=== PATIENT | female | born 1990 | race African-American/Black ===

== ENCOUNTER 2016-09-08 11:51 | Emergency (ER) | payer SELFPAY ==
--- NOTE | 2016-09-08 12:47 | ER Document Report ---
ED Medical Screen (RME) - General Stated Complaint: CHEST PAIN Mode of Arrival: Ambulatory Information source: Patient Notes: 25 y/o F presents to ED c/o right upper abd pain intermittently over the last week. Also reports cough with associated sob and dizziness during coughing bouts. I have greeted and performed a rapid initial assessment of this patient. A comprehensive ED assessment and evaluation of the patient, analysis of test results and completion of the medical decision making process will be conducted by additional ED providers. TRAVEL OUTSIDE OF THE [place] IN LAST 30 DAYS: No - Related Data Allergies/Adverse Reactions: No Known Allergies Allergy (Verified 09/08/16 12:29) Past Medical History - Social History Chew tobacco use (# tins/day): No Frequency of alcohol use: None Drug Abuse: None Renal/ Medical History: Denies: Hx Peritoneal Dialysis Psychiatric Medical History: Reports: Hx Depression - as teenager Denies: Hx Bipolar Disorder, Hx Post Traumatic Stress Disorder, Hx Schizophrenia Past Surgical History: Reports: Hx Gynecologic Surgery - D/C - Immunizations Immunizations up to date: Yes Hx Diphtheria, Pertussis, Tetanus Vaccination: Yes Physical Exam - Vital signs Vitals: Temp Pulse Resp BP Pulse Ox 98.0 F 125 H 18 136/88 H 99 09/08/16 12:09/08/16 12:09/08/16 12:09/08/16 12:09/08/16 12:26 - General General appearance: Appears well, Alert In distress: None - Respiratory Respiratory status: No respiratory distress - Cardiovascular Pulses: Normal: Radial Normal capillary refill: Yes Course - Vital Signs Vital signs: Temp Pulse Resp BP Pulse Ox 98.0 F 125 H 18 136/88 H 99 09/08/16 12:09/08/16 12:09/08/16 12:09/08/16 12:09/08/16 12:26
[2016-09-08 13:34] LABS: ABSOLUTE EOSINOPHILS # (AUTO) 0.1 10^3/uL (0.0-0.6); ABSOLUTE LYMPHOCYTES (AUTO) 1.2 10^3/uL (0.5-4.7); ABSOLUTE MONOCYTES (AUTO) 0.3 10^3/uL (0.1-1.4); ABSOLUTE NEUT (AUTO) 4.1 10^3/uL (1.7-8.2); BASOPHILS % (AUTO) 0.4 % (0-2); EOSINOPHILS % (AUTO) 1.3 % (0-6); HEMATOCRIT 39.1 % (36.0-47.0); HEMOGLOBIN 12.9 g/dL (12.0-15.5); HGB HCT DIFFERENCE -0.4; LYMPHOCYTES % (AUTO) 20.3 % (13-45); MEAN CORPUSCULAR HGB CONC 32.9 g/dL (32.0-36.0); MEAN CORPUSCULAR VOLUME 82 fl (80-97); MONOCYTES % (AUTO) 5.9 % (3-13); RED BLOOD COUNT 4.78 10^6/uL (3.72-5.28); RED CELL DISTRIBUTION WIDTH 14.5 % (11.5-14.0); SEGMENTED NEUTROPHILS % (AUTO) 72.1 % (42-78); WHITE BLOOD COUNT 5.7 10^3/uL (4.0-10.5)
[2016-09-08 14:01] LABS: ALANINE AMINOTRANSFERASE 17 U/L (9-52); ALBUMIN 3.5 g/dL (3.5-5.0); ALKALINE PHOSPHATASE 82 U/L (38-126); ANION GAP 12 (5-19); ASPARTATE AMINO TRANSFERASE 17 U/L (14-36); BILIRUBIN,TOTAL 0.2 mg/dL (0.2-1.3); BLOOD UREA NITROGEN 9 mg/dL (7-20); CALCIUM 8.6 mg/dL (8.4-10.2); CARBON DIOXIDE 21 mmol/L (22-30); CHLORIDE 107 mmol/L (98-107); CREATININE RESULT 0.88 mg/dL (0.52-1.25); GLUCOSE 160 mg/dL (75-110); LIPASE 132.5 U/L (23-300); POTASSIUM 3.8 mmol/L (3.6-5.0); SODIUM 139.6 mmol/L (137-145); TOTAL PROTEIN 6.7 g/dL (6.3-8.2)
[2016-09-08] MEDS ORDERED: PREDNISONE 20 MG TABLET PO ONE (14:42)
[2016-09-08] MEDS ORDERED: IPRATROPIUM/ALBUTEROL 0.5-2.5 MG/3 ML AMPUL NEB ONE (14:42)
--- NOTE | 2016-09-08 14:42 | ER Document Report ---
ED Respiratory Problem - General Mode of Arrival: Ambulatory Information source: Patient TRAVEL OUTSIDE OF THE [place] IN LAST 30 DAYS: No - HPI Patient complains to provider of: Cough Associated symptoms: Other - See above <SUSAN BREWER - Last Filed: 09/08/16 15:21> <ALEAH RODRIGUES - Last Filed: 09/08/16 18:00> - General Chief Complaint: Cough Stated Complaint: CHEST PAIN Notes: Patient is a 25 year old female who presents to the emergency department complaining of a cough onset 5 days ago. Patient reports that she first had a fever which has since gone away and states that her cough has been worsening. Patient also complains of difficulty breathing starting 4 days ago, nasal congestion, and sore throat. Patient has not taken any medications at home. ( SUSAN BREWER) - Related Data Allergies/Adverse Reactions: No Known Allergies Allergy (Verified 09/08/16 12:29) Past Medical History - General Information source: Patient - Social History Smoking Status: Current Every Day Smoker Chew tobacco use (# tins/day): No Frequency of alcohol use: None Drug Abuse: None Family History: Reviewed & Not Pertinent Patient has suicidal ideation: No Patient has homicidal ideation: No Psychiatric Medical History: Reports: Hx Depression - as teenager Past Surgical History: Reports: Hx Section, Hx Gynecologic Surgery - D/ C - Immunizations Immunizations up to date: Yes Hx Diphtheria, Pertussis, Tetanus Vaccination: Yes <SUSAN BREWER - Last Filed: 09/08/16 15:21> Review of Systems - Review of Systems Constitutional: See HPI, Fever EENT: See HPI, Nose congestion, Throat pain Cardiovascular: No symptoms reported Respiratory: See HPI, Cough, Other - Difficulty breathing Gastrointestinal: No symptoms reported Genitourinary: No symptoms reported Female Genitourinary: No symptoms reported Musculoskeletal: No symptoms reported Skin: No symptoms reported Hematologic/Lymphatic: No symptoms reported Neurological/Psychological: No symptoms reported -: Yes All other systems reviewed and negative <SUSAN BREWER - Last Filed: 09/08/16 15:21> Physical Exam - Vital signs Interpretation: Normal - General General appearance: Appears well, Alert - HEENT Head: Normocephalic, Atraumatic - Respiratory Respiratory status: No respiratory distress Chest status: Tender - Anterior chest wall tender to palpation Breath sounds: Wheezing - with forced expiration Chest palpation: Normal - Cardiovascular Rhythm: Regular Heart sounds: Normal auscultation Murmur: No - Back Back: Normal, Nontender - Extremities General upper extremity: Normal inspection General lower extremity: Normal inspection - Neurological Neuro grossly intact: Yes Cognition: Normal Orientation: AAOx4 [place] Coma Scale Eye Opening: Spontaneous [place] Coma Scale Verbal: Oriented [place] Coma Scale Motor: Obeys Commands [place] Coma Scale Total: 15 Speech: Normal - Psychological Associated symptoms: Normal affect, Normal mood - Skin Skin Temperature: Warm Skin Moisture: Dry Skin Color: Normal <SUSAN BREWER - Last Filed: 09/08/16 15:21> Course - Laboratory Result Diagrams: 09/08/16 13:09 09/08/16 13:09 <SUSAN BREWER - Last Filed: 09/08/16 15:21> - Laboratory Result Diagrams: 09/08/16 13:09 09/08/16 13:09 <ALEAH RODRIGUES - Last Filed: 09/08/16 18:00> - Re-evaluation Re-evalutation: 09/08/16 Patient improved after nebulizer and prednisone. Will be discharged home with albuterol and prednisone. Stable for discharge. Return if any worsening or concerning symptoms. Understands agrees with plan. (ALEAH RODRIGUES) - Vital Signs Vital signs: Temp Pulse Resp BP Pulse Ox 99.4 F 93 16 135/88 H 100 09/08/16 16:53 09/08/16 16:53 09/08/16 16:53 09/08/16 16:53 09/08/16 16:53 (SUSAN BREWER) (ALEAH RODRIGUES) - Laboratory Laboratory results interpreted by mn: 09/08/16 09/08/16 09/08/16 13:09 13:09 15:40 RDW 14.5 H Carbon Dioxide 21 L Glucose 160 H Urine Glucose (UA) 50 H (SUSAN BREWER) (ALEAH RODRIGUES) Discharge <SUSAN BREWER - Last Filed: 09/08/16 15:21> <ALEAH RODRIGUES - Last Filed: 09/08/16 18:00> - Discharge Clinical Impression: Bronchitis with bronchospasm Condition: Stable Disposition: HOME, SELF-CARE Instructions: Bronchospasm ([facility]), Bronchitis ([facility]), Bronchodilators ([facility]) Prescriptions: Acetaminophen with Codeine [Tylenol with Codeine #3 Tablet] 1 tab PO BIDP PRN # 14 tab PRN Reason: Prednisone 40 mg PO DAILY #6 tablet Forms: Return to Work Referrals: RINKU BEST MD [Primary Care Provider] - Follow up as needed Scribe Attestation: 09/08/16 18:00 I personally performed the services described in the documentation, reviewed and edited the documentation which was dictated to the scribe in my presence, and it accurately records my words and actions. (ALEAH RODRIGUES) Scribe Documentation - Scribe Written by Mckinley:: mckinley Davila, 09/08/16, 0316 acting as scribe for :: Deanne <SUSAN BREWER - Last Filed: 09/08/16 15:21>
[2016-09-08 15:55] LABS: APPEARANCE,URINE SLIGHTLY-CLOUDY; BILIRUBIN,URINE NEGATIVE (NEGATIVE); GLUCOSE, URINE 50 mg/dL (NEGATIVE); KETONES,URINE NEGATIVE (NEGATIVE); LEUKOCYTE ESTERASE,URINE NEGATIVE (NEGATIVE); NITRITE,URINE NEGATIVE (NEGATIVE); PROTEIN,URINE NEGATIVE (NEGATIVE); URINE SPECIFIC GRAVITY 1.016; UROBILINOGEN,URINE NEGATIVE mg/dL (<2.0)
[2016-09-08] MEDS ORDERED: ALBUTEROL SULFATE HFA (90 MCG/PUFF) 8 GM MDI (1 MDI/ER DISP) IH ONE (16:38)
[2016-09-08 16:59] VITALS: BP 135/88
--- NOTE | 2016-09-08 18:03 | EKG REPORT ---
SEVERITY:- NORMAL ECG - SINUS RHYTHM : Confirmed by: Flower Shaikh 08-Sep-2016 18:01:33
== END 2016-09-08 16:55 | disposition home or self-care (01) ==
LOC: ER 11:51
DX: J40 Bronchitis, not specified as acute or chronic (principal); J98.01 Acute bronchospasm; R05 Cough; R09.81 Nasal congestion; J02.9 Acute pharyngitis, unspecified; R06.2 Wheezing; F17.200 Nicotine dependence, unspecified, uncomplicated
CPT/HCPCS: 93005; 94640; 99284; 36415; 83690; 85025; 81025; 80053; 81001; 71020; 93010; J7512; J3490; J7620

== ENCOUNTER 2017-12-18 14:22 | Emergency (ER) | payer MEDICAID ==
[2017-12-18 14:27] VITALS: BP 117/75
[2017-12-18] MEDS ORDERED: DEXAMETHASONE SOD PHOS INJ 10 MG/1 ML VIAL IM ONE (15:07)
--- NOTE | 2017-12-18 15:11 | ER Document Report ---
HPI - HPI Pain Level: 3 Notes: Patient is a 27-year-old female who presents to the ED complaining of nasal congestion/discharge, dry nonproductive cough, occ body ache 3-4 days. Patient states that she is still eating and drinking without difficulties, but does have a decreased p.o. intake. She is still urinating normally having normal bowel movements. Patient has been using some [id number] meds for symptoms. She denies any significant past medical history including cardiopulmonary history and immunocompromised conditions. Patient denies any IV drug use. Denies any headache, neck pain, sore throat, chest pain, palpitations, syncope, shortness of breath, wheeze, dyspnea, abdominal pain, nausea/vomiting/diarrhea, urinary retention, dysuria, hematuria, or rash. - ROS Systems Reviewed and Negative: Yes All other systems reviewed and negative - REPRODUCTIVE Reproductive: REPORTS: : Past Medical History - Social History Smoking Status: Current Every Day Smoker Family History: Reviewed & Not Pertinent Renal/ Medical History: Denies: Hx Peritoneal Dialysis Psychiatric Medical History: Reports: Hx Depression - as teenager Denies: Hx Bipolar Disorder, Hx Post Traumatic Stress Disorder, Hx Schizophrenia Past Surgical History: Reports: Hx Section, Hx Gynecologic Surgery - D/ C - Immunizations Immunizations up to date: Yes Hx Diphtheria, Pertussis, Tetanus Vaccination: Yes Vertical Provider Document - CONSTITUTIONAL Agree With Documented VS: Yes Notes: PHYSICAL EXAMINATION: GENERAL: Well-appearing, well-nourished and in no acute distress. A&Ox4. Answers questions appropriately. Moves comfortably w/o notable distress HEAD: Atraumatic, normocephalic. EYES: Pupils equal round and reactive to light, extraocular movements intact, sclera anicteric, conjunctiva are normal. ENT: EAC clear b/l. TM's intact b/l without erythema, fluid, or perforation. Nares patent and with clear discharge. oropharynx no erythema without exudates. No tonsilar hypertrophy without erythema or exudate. No palatine shift. Uvula midline. No tongue protrusion. No drooling, hoarseness, or airway compromise. Moist mucous membranes. No sinus tenderness. NECK: Normal range of motion, supple without lymphadenopathy. No rigidity/ meningismus. LUNGS: Breath sounds clear to auscultation bilaterally and equal. No wheezes rales or rhonchi. No retractions HEART: Regular rate and rhythm without murmurs, rubs, gallops. ABDOMEN: Soft, nontender, nondistended abdomen. No guarding, no rebound. No masses appreciated. Normal bowel sounds present. No CVA tenderness bilaterally. No hepatosplenomegaly. NEUROLOGICAL: Normal speech, normal gait. Normal sensory, motor exams PSYCH: Normal mood, normal affect. SKIN: Warm, Dry, normal turgor, no rashes or lesions noted. - INFECTION CONTROL TRAVEL OUTSIDE OF THE [place] IN LAST 30 DAYS: No Course - Re-evaluation Re-evalutation: 12/18/17 15:09 Patient is an afebrile, well-hydrated, 27-year-old female who presents to the ED with acute URI, suspect viral. Vitals are acceptable. PE is otherwise unremarkable. Decadron given today. No labs or imaging warranted at this time based on H&P. Patient has no significant cardiopulmonary or immunocompromised medical conditions. Patient's lungs are clear to auscultation bilaterally without tachycardia, hypoxia, or tachypnea. Patient is tolerating p.o. without any difficulties. Low suspicion for any meningitis, sepsis, peritonsillar/ pharyngeal abscess, respiratory compromise, severe dehydration, or other emergent systemic condition at this time. Patient is aware this condition can change from initial presentation and she needs to monitor symptoms closely. Conservative measures otherwise for symptoms. Rx for tessalon. Recheck with your PCM in 3-5 days. Return to the ED with any worsening/concerning symptoms otherwise as reviewed in discharge. Patient is in agreement. - Vital Signs Vital signs: Temp Pulse Resp BP Pulse Ox 99.1 F 89 14 117/75 98 12/18/17 14:26 12/18/17 14:26 12/18/17 14:26 12/18/17 14:26 12/18/17 14:26 Discharge - Discharge Clinical Impression: Acute URI Condition: Stable Disposition: HOME, SELF-CARE Instructions: Upper Respiratory Illness ([facility]) Additional Instructions: Maintain adequate fluid intake Take meds as directed tylenol/ibuprofen as needed over the counter cold medication as needed for symptoms Humidified air may help Wash your hands regularly Wear a mask when coughing F/u: with your PCM in 3-5 days for a recheck Return to the ED with any fever, worsening pain, chest pain, palpitations, syncope, worsening BROWN, neck pain/stiffness, shortness of breath, wheezing, drooling, trouble swallowing/breathing, abdominal pain, n/v/d, rash, or worsening/concerning symptoms otherwise. Prescriptions: Benzonatate [Tessalon Perle 100 mg Capsule] 100 mg PO Q8HP PRN #15 cap PRN Reason: Referrals: ED [facility] [Provider Group] - Follow up as needed [facility] [Provider Group] - Follow up as needed
== END 2017-12-18 15:32 | disposition home or self-care (01) ==
LOC: ER 14:22
DX: J06.9 Acute upper respiratory infection, unspecified (principal); R09.81 Nasal congestion; R05 Cough; R52 Pain, unspecified; F17.200 Nicotine dependence, unspecified, uncomplicated
CPT/HCPCS: 99283; 96372; J1100

== ENCOUNTER 2018-04-18 11:12 | Day surgery (SDC) | payer MEDICAID ==
[~2018-04-18 11:12] MED LIST: DEXAMETHASONE SOD PHOSPHATE INJ 4 MG/1 ML VIAL ONE; GLYCOPYRROLATE 1 MG/5 ML SYRINGE ONE; METOCLOPRAMIDE HCL INJ/PF 10 MG/2 ML SDV ONE; ONDANSETRON HCL INJ/PF 4 MG/2 ML SDV ONE
[2018-04-18 12:22] LABS: APPEARANCE,URINE SLIGHTLY-CLOUDY; BILIRUBIN,URINE NEGATIVE (NEGATIVE); COLOR,URINE YELLOW; GLUCOSE, URINE NEGATIVE (NEGATIVE); KETONES,URINE NEGATIVE (NEGATIVE); LEUKOCYTE ESTERASE,URINE NEGATIVE (NEGATIVE); NITRITE,URINE NEGATIVE (NEGATIVE); PROTEIN,URINE NEGATIVE (NEGATIVE); URINE SPECIFIC GRAVITY 1.019; UROBILINOGEN,URINE NEGATIVE mg/dL (<2.0)
[2018-04-18 12:35] LABS: HEMATOCRIT 37.8 % (36.0-47.0); HEMOGLOBIN 12.7 g/dL (12.0-15.5); MEAN CORPUSCULAR HEMOGLOBIN 28.7 pg (27.0-33.4); MEAN CORPUSCULAR HGB CONC 33.6 g/dL (32.0-36.0); MEAN CORPUSCULAR VOLUME 85 fl (80-97); PLATELET COUNT 180 10^3/uL (150-450); RED BLOOD COUNT 4.43 10^6/uL (3.72-5.28); RED CELL DISTRIBUTION WIDTH 14.3 % (11.5-14.0); WHITE BLOOD COUNT 7.1 10^3/uL (4.0-10.5)
[2018-04-18] MEDS ORDERED: FENTANYL CITRATE INJ/PF 100 MCG/2 ML AMPUL ONE (13:23)
[2018-04-18] MEDS ORDERED: EPHEDRINE SULFATE INJ 50 MG/1 ML AMPULE ONE (13:23)
[2018-04-18] MEDS ORDERED: MIDAZOLAM 2 MG/2 ML INJ ONE (13:23)
[2018-04-18] MEDS ORDERED: PROPOFOL INJ 200 MG/20 ML VIAL IV ONE (13:23)
[2018-04-18] MEDS ORDERED: LIDOCAINE 2% INJ-PF (20 MG/ML) 10 ML AMPUL ONE (13:24)
[2018-04-18 13:47] LABS: CHLAM PCR NOT DETECTED (NOT DETECT); GON PCR NOT DETECTED (NOT DETECT)
[2018-04-18] MEDS ORDERED: LIDOCAINE 1%/EPINEPHRINE INJ 20 ML VIAL ONE (14:15)
[2018-04-18] MEDS ORDERED: DIPHENHYDRAMINE HCL 50 MG/ML VIAL IV PRN (14:35)
[2018-04-18] MEDS ORDERED: MORPHINE SULFATE 10 MG/ML INJ IV PRN (14:35)
[2018-04-18] MEDS ORDERED: MEPERIDINE HCL/PF INJ 25 MG/1 ML DISP.SYRIN IV PRN (14:35)
[2018-04-18] MEDS ORDERED: FENTANYL CITRATE INJ/PF 100 MCG/2 ML AMPUL IV PRN ×3 (14:35)
[2018-04-18] MEDS ORDERED: PROMETHAZINE HCL INJ 25 MG/1 ML VIAL IV PRN ×2 (14:35)
[2018-04-18] MEDS ORDERED: ONDANSETRON HCL INJ/PF 4 MG/2 ML SDV IV PRN (14:41)
[2018-04-18] MEDS ORDERED: KETOROLAC TROMETHAMINE INJ/PF 30 MG/1 ML SDV ONE (15:16)
[2018-04-18] MEDS ORDERED: ACETAMINOPHEN 1,000 MG/100 ML RTUPB IV ONE (15:16)
[2018-04-18] MEDS ORDERED: OXYCODONE-ACETAMINOPHEN 5-325 MG TABLET ONE (16:08)
[2018-04-18 16:59] VITALS: BP 119/70
--- NOTE | 2018-05-06 07:19 | Operative Report ---
Operative Report DATE OF SURGERY: 04/18/18 PREOPERATIVE DIAGNOSIS: HGSIL POSTOPERATIVE DIAGNOSIS: HGSIL OPERATION: EUA, Paracervical block, CKC, ECC SURGEON: TONY BERMUDEZ ANESTHESIA: GA TISSUE REMOVED OR ALTERED: CKC, ECC COMPLICATIONS: None ESTIMATED BLOOD LOSS: 20ml INTRAOPERATIVE FINDINGS: normal 8wks uterus with only mild uterine descent, decreased uptake circumferentially around cervical os and prominent at 6 0'clock PROCEDURE: Anesthesia: Joseph Reyes CONTACT PRINTER DRY FILM IVF: [800ml] UOP: void prior to OR Indications: [27yo with HGSIL diagnosed on pap smear in 06/2017 then patient had colposcopy 11/2017 with HSGIL and SUMAN III noted. Reviewed concerns for HGSIL which now has been present for some time and recommendations for diagnostic and excisional possibly curative procedure with cold knife conization. The risks, benefits, alternatives reviewed and she desires to proceed with planned procedure.] Procedure: The patient was taken to the Operating Room where general anesthesia was obtained without difficulty. She was prepped and draped in the normal sterile fashion in the dorsal lithotomy position. Exam under anesthesia was performed and noted above. A speculum was placed in the vagina. The anterior cervix was grasped with a single-tooth tenaculum and the uterus sounded to 8 cm after paracervical block was performed with 8 mL of 1% lidocaine with epinephrine. Sutures placed at 3 o'clock and 9 o'clock position. Lugol's solution placed on the cervix and vagina in the usual fashion with decreased uptake as noted above. The scalpel was then used to excise cone from cervix encompassing abnormalities. The conization bed was then cauterized with the bovie and an endocervical curettage specimen was obtained from above the conization site. Monsels coated foam was placed in bed of conization site. All instruments were removed from the patient's cervix and vagina. Silver nitrate was applied to the tenaculum site for hemostasis. Sponge lap needle and instrument counts are correct 2. No perioperative antibiotics were given as is not indicated for this procedure. The patient tolerated the procedure well and was taken to the recovery area awake and in stable condition.
== END 2018-04-18 17:00 | disposition home or self-care (01) ==
LOC: OROUT 11:12
PROVIDERS: ATTEND Student in an Organized Health Care Education/Training Program
DX: D06.9 Carcinoma in situ of cervix, unspecified (principal); K21.9 Gastro-esophageal reflux disease without esophagitis; F17.210 Nicotine dependence, cigarettes, uncomplicated; Z79.899 Other long term (current) drug therapy
CPT/HCPCS: 86900; 86901; 36415; 86850; 85027; 81025; 81001; 87491; 87591; 88305 ×2; 88307 ×2; 57520; J2250; J1100; J3010; J3490 ×3; J1885; J2765; J2405; J2704; J0131; 940

== ENCOUNTER 2018-05-30 05:26 | Day surgery (SDC) | payer MEDICAID ==
[2018-05-20 12:26] LABS: HEMATOCRIT 37.5 % (36.0-47.0); MEAN CORPUSCULAR HEMOGLOBIN 29.2 pg (27.0-33.4); MEAN CORPUSCULAR HGB CONC 34.7 g/dL (32.0-36.0); MEAN CORPUSCULAR VOLUME 84 fl (80-97); PLATELET COUNT 200 10^3/uL (150-450); RED BLOOD COUNT 4.45 10^6/uL (3.72-5.28); RED CELL DISTRIBUTION WIDTH 13.9 % (11.5-14.0); WHITE BLOOD COUNT 8.5 10^3/uL (4.0-10.5)
[2018-05-20 12:28] LABS: APPEARANCE,URINE SLIGHTLY-CLOUDY; BILIRUBIN,URINE NEGATIVE (NEGATIVE); COLOR,URINE YELLOW; GLUCOSE, URINE NEGATIVE (NEGATIVE); KETONES,URINE NEGATIVE (NEGATIVE); LEUKOCYTE ESTERASE,URINE TRACE (NEGATIVE); NITRITE,URINE NEGATIVE (NEGATIVE); PROTEIN,URINE NEGATIVE (NEGATIVE); URINE SPECIFIC GRAVITY 1.023
[2018-05-20 12:51] LABS: ALANINE AMINOTRANSFERASE 9 U/L (9-52); ALKALINE PHOSPHATASE 66 U/L (38-126); ANION GAP 9 (5-19); ASPARTATE AMINO TRANSFERASE 13 U/L (14-36); BILIRUBIN,DIRECT 0.1 mg/dL (0.0-0.4); BILIRUBIN,TOTAL 0.2 mg/dL (0.2-1.3); BLOOD UREA NITROGEN 9 mg/dL (7-20); CALCIUM 9.4 mg/dL (8.4-10.2); CARBON DIOXIDE 24 mmol/L (22-30); CHLORIDE 109 mmol/L (98-107); GLUCOSE 89 mg/dL (75-110); POTASSIUM 4.4 mmol/L (3.6-5.0); SODIUM 142.1 mmol/L (137-145); TOTAL PROTEIN 6.7 g/dL (6.3-8.2)
[2018-05-20 14:48] LABS: THYROXINE T4 11.3 ug/dL (5.53-11.0)
[2018-05-20 15:02] LABS: TOTAL T3 1.46 ng/mL (0.970-1.69)
[~2018-05-30 05:26] MED LIST changes: +CEFAZOLIN 2 GM/D5W RTU 2 GM/50 ML RTUPB IV PRN; -DEXAMETHASONE SOD PHOSPHATE INJ 4 MG/1 ML VIAL ONE; -GLYCOPYRROLATE 1 MG/5 ML SYRINGE ONE; +LACTATED RINGERS 1000 ML IV PRN; +LIDOCAINE 0.5% INJ-PF (5 MG/ML) 50 ML SDV SUBCUT PRN; -METOCLOPRAMIDE HCL INJ/PF 10 MG/2 ML SDV ONE; -ONDANSETRON HCL INJ/PF 4 MG/2 ML SDV ONE
[2018-05-30] MEDS ORDERED: CEFAZOLIN 2 GM/D5W RTU 2 GM/50 ML RTUPB IV ONE (05:56)
[2018-05-30] MEDS ORDERED: BUPIVACAINE HCL 0.25% /EPINEPHRINE INJ/PF 30 ML SDV ONE (06:41)
[2018-05-30] MEDS ORDERED: FENTANYL CITRATE INJ/PF 250 MCG/5 ML AMPULE ONE (07:02)
[2018-05-30] MEDS ORDERED: MIDAZOLAM 2 MG/2 ML INJ ONE (07:02)
[2018-05-30] MEDS ORDERED: MORPHINE SULFATE 10 MG/ML INJ ONE (07:03)
[2018-05-30] MEDS ORDERED: PROPOFOL INJ 200 MG/20 ML VIAL IV ONE (07:03)
[2018-05-30] MEDS ORDERED: ACETAMINOPHEN 1,000 MG/100 ML RTUPB IV ONE (07:03)
[2018-05-30] MEDS ORDERED: DEXAMETHASONE SOD PHOSPHATE INJ 4 MG/1 ML VIAL ONE (07:03)
[2018-05-30] MEDS ORDERED: ONDANSETRON HCL INJ/PF 4 MG/2 ML SDV ONE ×2 (07:03→16:06)
[2018-05-30] MEDS ORDERED: MEPERIDINE HCL/PF INJ 25 MG/1 ML DISP.SYRIN IV PRN (08:05)
[2018-05-30] MEDS ORDERED: PROMETHAZINE HCL INJ 25 MG/1 ML VIAL IV PRN ×2 (08:05)
[2018-05-30] MEDS ORDERED: MORPHINE SULFATE 10 MG/ML INJ IV PRN (08:05)
[2018-05-30] MEDS ORDERED: DIPHENHYDRAMINE HCL 50 MG/ML VIAL IV PRN (08:05)
[2018-05-30] MEDS ORDERED: OXYCODONE-ACETAMINOPHEN 5-325 MG TABLET PO PRN ×3 (08:05→10:23)
[2018-05-30] MEDS ORDERED: FENTANYL CITRATE INJ/PF 100 MCG/2 ML AMPUL IV PRN ×3 (08:05)
[2018-05-30] MEDS ORDERED: INDIGOTINDISULFONATE SODIUM INJ 40 MG/5 ML AMPULE ONE (08:53)
[2018-05-30] MEDS ORDERED: ROCURONIUM BROMIDE INJ 50 MG/5 ML VIAL IV ONE (09:12)
[2018-05-30] MEDS ORDERED: LACTATED RINGERS 1000 ML IV PRN (10:26)
[2018-05-30] MEDS: FENTANYL CITRATE INJ/PF 100 MCG/2 ML AMPUL ONE ×2 (10:40→10:42)
[2018-05-30] MEDS: KETOROLAC TROMETHAMINE INJ/PF 30 MG/1 ML SDV IV SCH ×2 (13:19→23:22)
[2018-05-30] MEDS: OXYCODONE-ACETAMINOPHEN 5-325 MG TABLET PO PRN ×2 (13:24→23:23)
[2018-05-30] MEDS ORDERED: HYDROMORPHONE HCL INJ/PF 2 MG/ML AMPULE ONE (15:49)
[2018-05-30] MEDS ORDERED: ONDANSETRON HCL INJ/PF 4 MG/2 ML SDV IV ONE (16:30)
[2018-05-30] MEDS: PHENAZOPYRIDINE HCL 200 MG TABLET PO SCH (20:51)
[2018-05-30] MEDS: PHENOL/SODIUM PHENOLATE 100 SPRAY/177 ML BOTTLE PO PRN ×2 (20:51→23:23)
[2018-05-30] MEDS ORDERED: ZOLPIDEM TARTRATE 5 MG TABLET ONE (23:06)
[2018-05-30] MEDS ORDERED: ZOLPIDEM TARTRATE 5 MG TABLET PO ONE (23:15)
[2018-05-31] MEDS: KETOROLAC TROMETHAMINE INJ/PF 30 MG/1 ML SDV IV SCH (07:23)
[2018-05-31] MEDS ORDERED: DIPHENHYDRAMINE HCL 50 MG CAPSULE PO ONE (07:42)
[2018-05-31] MEDS ORDERED: DIPHENHYDRAMINE HCL 25 MG CAPSULE PO ONE (08:00)
[2018-05-31] MEDS ORDERED: HYDROCODONE/ACETAMINOPHEN 5-325 MG TABLET PO PRN ×2 (08:23)
[2018-05-31 08:42] LABS: HEMATOCRIT 34.4 % (36.0-47.0); HEMOGLOBIN 11.9 g/dL (12.0-15.5); MEAN CORPUSCULAR HEMOGLOBIN 29.1 pg (27.0-33.4); MEAN CORPUSCULAR HGB CONC 34.6 g/dL (32.0-36.0); MEAN CORPUSCULAR VOLUME 84 fl (80-97); PLATELET COUNT 202 10^3/uL (150-450); WHITE BLOOD COUNT 11.9 10^3/uL (4.0-10.5)
[2018-05-31] MEDS: PHENAZOPYRIDINE HCL 200 MG TABLET PO SCH ×2 (09:09→16:51)
[2018-05-31] MEDS ORDERED: DIPHENHYDRAMINE HCL 50 MG/ML VIAL IV ONE (09:30)
[2018-05-31 11:48] VITALS: BP 119/74
--- NOTE | 2018-05-31 16:11 | PDOC PROGRESS REPORT ---
Subjective Progress Note for:: 05/31/18 Subjective:: eyes swollen from percocet, throat sore, + flatus, + tolerating po intake, voiding without difficulty Reason For Visit: R87.613 HIGH GRADE INTREPITH LESION CYTO SMR CRVX Physical Exam - Physical Exam Vital Signs: Temp Pulse Resp BP Pulse Ox 98 F 75 18 119/74 100 05/31/18 11:47 05/31/18 11:47 05/31/18 11:47 05/31/18 11:47 05/31/18 11:47 Intake & Output 05/30/18 05/31/18 06/01/18 06:59 06:59 06:59 Intake Total 0 4970 1000 Output Total 3025 Balance 0 1945 1000 Weight 63.5 kg General appearance: PRESENT: no acute distress, well-developed, well-nourished Respiratory exam: PRESENT: clear to auscultation arcadio, symmetrical, unlabored Cardiovascular exam: PRESENT: RRR. ABSENT: diastolic murmur, rubs, systolic murmur Pulses: PRESENT: normal dorsalis pedis pul, +2 pedal pulses bilateral GI/Abdominal exam: PRESENT: normal bowel sounds, soft. ABSENT: distended, guarding, mass, organolmegaly, rebound, tenderness Rectal exam: PRESENT: deferred Extremities exam: PRESENT: full ROM. ABSENT: calf tenderness, clubbing, pedal edema Neurological exam: PRESENT: alert, awake, oriented to person, oriented to place , oriented to time, oriented to situation, CN II-XII grossly intact. ABSENT: motor sensory deficit Psychiatric exam: PRESENT: appropriate affect, normal mood. ABSENT: homicidal ideation, suicidal ideation Skin exam: PRESENT: dry, intact, warm. ABSENT: cyanosis, rash Result Laboratory Results: 05/31/18 08:03 05/20/18 11:55 05/31/18 08:03 WBC 11.9 H RBC 4.10 Hgb 11.9 L Hct 34.4 L MCV 84 MCH 29.1 MCHC 34.6 RDW 14.0 Plt Count 202 Assessment & Plan - Diagnosis (1) Cervical intraepithelial neoplasia grade 3 Is this a current diagnosis for this admission?: Yes Plan: s/p LAVH for SUMAN III. Doing well. Meets criteria for discharge. Discharge to home with f/u next week - Time Time Spent with patient: 15-24 minutes Medications reviewed and adjusted accordingly: Yes Anticipated discharge: Home Within: within 24 hours - Plan Summary Plan Summary: Discharge to home
--- NOTE | 2018-05-31 16:11 | PDOC DISCHARGE SUMMARY ---
General - Admit/Disc Date/PCP Admission Date/Primary Care Provider: Anna Ballesteros Discharge Date: 05/31/18 - Discharge Diagnosis (1) Cervical intraepithelial neoplasia grade 3 Is this a current diagnosis for this admission?: Yes Summary: admitted for LAVH, Cysto, culdoplasty, Bilateral salpingectomy - Additional Information Discharge Diet: As Tolerated Discharge Activity: Activity As Tolerated Prescriptions: Hydrocodone/Acetaminophen [[place] 5-325 mg Tablet] 1 tab PO Q4HP PRN #28 tablet PRN Reason: Phenazopyridine HCl [Pyridium 200 mg Tablet] 200 mg PO TID 2 Days #6 tablet Ranitidine HCl [Zantac 150 mg Tablet] 1 tab PO BID 14 Days #28 tablet Home Medications: Cetirizine HCl [Zyrtec] 10 mg PO PRN PRN 04/18/18 Hydrocodone/Acetaminophen [[place] 5-325 mg Tablet] 1 tab PO Q4HP PRN #28 tablet 05/31/18 Phenazopyridine HCl [Pyridium 200 mg Tablet] 200 mg PO TID 2 Days #6 tablet 04/09 Ranitidine HCl [Zantac 150 mg Tablet] 1 tab PO BID 14 Days #28 tablet 05/31/18 History of Present Illness Patient complains of: HGSIL 06/2017 then on colposcopy 11/2017 noted SUMAN III. Pt underwent CKC and noted SUMAN III History of Present Illness: SANDEEP PRUITT is a 27 year old female Hospital Course Hospital Course: SUMAN on recent CKC and Dr. De Leon agreed with recommendations for hysterectomy and concurred that able to be performed by a lei maker with current pathology available Physical Exam - Physical Exam Vital Signs: Temp Pulse Resp BP Pulse Ox 98 F 75 18 119/74 100 05/31/18 11:47 05/31/18 11:47 05/31/18 11:47 05/31/18 11:47 05/31/18 11:47 Intake & Output 05/30/18 05/31/18 06/01/18 06:59 06:59 06:59 Intake Total 0 4970 1000 Output Total 3025 Balance 0 1945 1000 Weight 63.5 kg General appearance: PRESENT: no acute distress, well-developed, well-nourished Head exam: PRESENT: atraumatic, normocephalic Respiratory exam: PRESENT: clear to auscultation arcadio, symmetrical, unlabored Cardiovascular exam: PRESENT: RRR. ABSENT: diastolic murmur, rubs, systolic murmur GI/Abdominal exam: PRESENT: normal bowel sounds, soft. ABSENT: distended, guarding, mass, organolmegaly, rebound, tenderness Rectal exam: PRESENT: deferred Extremities exam: PRESENT: calf tenderness Neurological exam: PRESENT: alert, awake, oriented to person, oriented to place , oriented to time, oriented to situation, CN II-XII grossly intact. ABSENT: motor sensory deficit Psychiatric exam: PRESENT: appropriate affect, normal mood. ABSENT: homicidal ideation, suicidal ideation Skin exam: PRESENT: dry, intact, warm. ABSENT: cyanosis, rash Result Laboratory Results: 05/31/18 08:03 05/20/18 11:55 05/31/18 08:03 WBC 11.9 H RBC 4.10 Hgb 11.9 L Hct 34.4 L MCV 84 MCH 29.1 MCHC 34.6 RDW 14.0 Plt Count 202 Plan Discharge Plan: Discharge to home Time Spent: Less than 30 Minutes
--- NOTE | 2018-06-01 03:06 | Operative Report ---
Operative Report DATE OF SURGERY: 05/30/18 PREOPERATIVE DIAGNOSIS: SUMAN III/CIS POSTOPERATIVE DIAGNOSIS: CHELA OPERATION: LAVH, Cystoscopy, Culdoplasty, Right ovarian cyst drainage SURGEON: TONY BERMUDEZ 1ST OCCUP THER: JOLEEN BOJORQUEZ ANESTHESIA: GA TISSUE REMOVED OR ALTERED: uterus and cervix, bilateral fallopian tubes COMPLICATIONS: none ESTIMATED BLOOD LOSS: 50ml INTRAOPERATIVE FINDINGS: normal uterus, normal tubes, small simple right ovarian cyst, normal left ovary PROCEDURE: Anesthesia: Darrin Melvin MD, Andriy Quiñones MATERIAL RECLAIMER Indications:27yo with SUMAN III/CIS on recent CKC (pap HGSIL 06/2017, SUMAN III on biopsy with colposcopy 11/2017. She has completed childbearing and had desired tubal sterilization prior to this diagnosis. Reviewed pap and CKC pathology with Dr. De Leon (HOUSEKEEPER/LAUNDRY ASSISTANT Oncology) who agreed with recommendations for hysterectomy and agreed could be performed by a marble machine operator. The risks, benefits , alternatives were reviewed and she desires to proceed with planned LAVH with Cystoscopy and Culdoplasty. Estimated blood loss: 50ml Urine output: 150ml IV fluids: 2000ml Procedure: The patient was taken to the operating room where general anesthesia was obtained. The patient was then prepped and placed in the dorsal supine position with lithotomy and prepped and draped in the usual fashion. A speculum was then placed in the patient's vagina and the cervix grasped with a single-tooth tenaculum at approximately the 12 o'clock position of the anterior lip of the cervix. The medium Vesicare device was then placed and suture placed at the 12 o'clock position as well in order to maintain cut against the cervix during procedure. Single-tooth tenaculum and speculum were then removed from the patient's cervix and vagina. Attention was then turned to the abdomen where an infraumbilical skin incision was made and the Veress needle inserted into the abdominal cavity. Aspiration was negative therefore the abdomen was insufflated with carbon dioxide approximately 4 L. After adequate insufflation the Veress needle was removed and the 5 mm Optiview trocar was placed under direct visualization with the laparoscope. Survey of the patient's abdomen and pelvis were performed with findings as noted above. At this time 5mm skin incisions were made approximately 2 cm medial and 4 cm superior to the anterior iliac spine on the left and then third trocar sites placed approximately 4 cm superior also on the left. 5 mm trochars placed at all of the sites. At this time the right cornua was grasped and the right fallopian tube and utero-ovarian ligament and round ligaments were cauterized and transected in the usual fashion with the LigaSure device the remainder of the uterine vessels in anterior and posterior leaves of the broad ligament as well as cardinal and uterosacral ligaments were coagulated and transected in a serial fashion down to the level of the uterine artery. The uterine artery was then identified and cauterized and transected in the usual fashion with the LigaSure device. The anterior leaf of the broad ligament was then dissected to the midline establishing a bladder flap with a combination of blunt and sharp dissection. Sharp dissection made superiorly bilaterally to the level of the internal os of the cervix. Cautery was then used to make the anterior and posterior colpotomies over the Vesicare device in a circumferential fashion thus freeing the uterus and the cervix which were then removed vaginally and sent to pathology. Prior to the removal of the uterus and the cervix attention was turned to the bilateral fallopian tubes which were serially cauterized and transected and then removed with the uterus and cervix. The ovaries remain in place but right ovarian cyst noted and drained with transvaginal needle. Attention was then turned to the vagina where serial vaginal cuff closure was performed with 2-0 Vicryl interrupted suture. 2-0 ethibond suture placed for culdoplasty in the usual fashion and prior to securing the culdoplasty suture cystoscopy was performed with notation of bilaterally patent ureters. The cystoscope was then removed and cuff closure confirmed. Attention was then returned to the abdomen and final look performed with laparoscopy. Interceed was placed over the vaginal cuff closure laparoscopically. All operative sites were noted to be hemostatic and all instruments were removed and abdominal insufflation expelled. The trochar sites were closed with 3-0 monocryl and then overlying dermabond. Ancef 2 grams were given preoperative. Sponge, lap, needle and instruments counts were correct times two. The patient was taken to the recovery area awake and in stable condition.
== END 2018-05-31 16:55 | disposition home or self-care (01) ==
LOC: OROUT 05:26 → 2N 11:27 → OROUT 05-31 16:55
PROVIDERS: ATTEND Student in an Organized Health Care Education/Training Program
DX: D06.9 Carcinoma in situ of cervix, unspecified (principal); N72 Inflammatory disease of cervix uteri; N83.201 Unspecified ovarian cyst, right side; R53.83 Other fatigue; F17.210 Nicotine dependence, cigarettes, uncomplicated
CPT/HCPCS: 86900; 86901; 36415 ×3; 86850; 84443; 84703 ×2; 85027 ×2; 80053; 81001; 84480; 84436; 82306; 88162; 88307 ×2; 58552; 58679; C1765; J2250; J3490 ×7; J1100; J1200; J3010 ×2; J1885 ×2; J2270; J2405; J7120; J2704; J0690; J0131; 944

== ENCOUNTER 2019-08-26 17:36 | Emergency (ER) | payer SELFPAY ==
[2019-08-26] MEDS ORDERED: IBUPROFEN 800 MG TABLET PO ONE (18:51)
--- NOTE | 2019-08-26 18:52 | ER Document Report ---
HPI - HPI Time Seen by Provider: 08/26/19 18:38 Notes: Patient is a 28-year-old female who presents to the ED complaining of nasal congestion/discharge, dry nonproductive cough, fever, body ache 1 day. Child started with same symptoms this AM. Patient states that she is still eating and drinking without difficulties, but does have a decreased p.o. intake. She is still urinating normally having normal bowel movements. Patient has been using some [id number] meds for symptoms. She denies any significant past medical history including cardiopulmonary history and immunocompromised conditions. Denies any current headache, neck pain, sore throat, chest pain, palpitations, syncope, shortness of breath, wheeze, dyspnea, abdominal pain, nausea/vomiting/diarrhea, urinary retention, dysuria, hematuria, or rash. - ROS Systems Reviewed and Negative: Yes All other systems reviewed and negative - REPRODUCTIVE Reproductive: REPORTS: : Past Medical History - Social History Smoking Status: Unknown if Ever Smoked Family History: Reviewed & Not Pertinent - Past Medical History Cardiac Medical History: Denies: Hx Coronary Artery Disease, Hx Heart Attack, Hx Hypertension Pulmonary Medical History: Denies: Hx Asthma, Hx Bronchitis, Hx COPD, Hx Pneumonia Neurological Medical History: Denies: Hx Cerebrovascular Accident, Hx Seizures Renal/ Medical History: Denies: Hx Peritoneal Dialysis Musculoskeletal Medical History: Denies Hx Arthritis Psychiatric Medical History: Reports: Hx Depression - as teenager Denies: Hx Bipolar Disorder, Hx Post Traumatic Stress Disorder, Hx Schizophrenia Past Surgical History: Reports: Hx Section, Hx Gynecologic Surgery - D/C - Immunizations Immunizations up to date: Yes Hx Diphtheria, Pertussis, Tetanus Vaccination: Yes Vertical Provider Document - CONSTITUTIONAL Agree With Documented VS: Yes Notes: PHYSICAL EXAMINATION: GENERAL: Well-appearing, well-nourished and in no acute distress. A&Ox4. Answers questions appropriately. Moves comfortably w/o notable distress HEAD: Atraumatic, normocephalic. EYES: Pupils equal round and reactive to light, extraocular movements intact, sclera anicteric, conjunctiva are normal. ENT: Nares patent and with clear discharge. oropharynx no erythema without exudates. No tonsilar hypertrophy without erythema or exudate. No palatine shift. Uvula midline. No tongue protrusion. No drooling, hoarseness, or airway compromise. Moist mucous membranes. No sinus tenderness. NECK: Normal range of motion, supple without lymphadenopathy. No rigidity/meningismus. LUNGS: Breath sounds clear to auscultation bilaterally and equal. No wheezes rales or rhonchi. No retractions HEART: Regular rate and rhythm without murmurs, rubs, gallops. ABDOMEN: Soft, nontender, nondistended abdomen. No guarding, no rebound. Normal bowel sounds present. No CVA tenderness bilaterally. NEUROLOGICAL: Normal speech, normal gait. PSYCH: Normal mood, normal affect. SKIN: Warm, Dry, normal turgor, no rashes or lesions noted. - INFECTION CONTROL TRAVEL OUTSIDE OF THE [place] IN LAST 30 DAYS: No Course - Re-evaluation Re-evalutation: 08/26/19 19:55 Patient is an afebrile, well-hydrated, 28-year-old female who presents to the ED with acute URI, suspect viral/influenza. Vitals are acceptable. PE is otherwise unremarkable. No labs or imaging warranted at this time based on H&P. Patient has no significant cardiopulmonary or immunocompromised medical condi tions. Patient's lungs are clear to auscultation bilaterally without tachycardia, hypoxia, or tachypnea. Patient is tolerating p.o. without any difficulties. Thoroughly reviewed the risks, benefits, potential side effects, estimated cost without insurance with patient. After thorough review, patient requested Tamiflu at this time. Low suspicion for any meningitis, sepsis, peritonsillar/pharyngeal abscess, respiratory compromise, severe dehydration, or other emergent systemic condition at this time. Patient is aware this condition can change from initial presentation and she needs to monitor symptoms closely. Conservative measures otherwise for symptoms. Recheck with your PCM in 2-3 days. Return to the ED with any worsening/concerning symptoms otherwise as reviewed in discharge. Patient is in agreement. - Vital Signs Vital signs: Temp Pulse Resp BP Pulse Ox 102.3 F H 102 H 18 118/70 99 08/26/19 18:11 08/26/19 18:11 08/26/19 18:11 08/26/19 18:11 08/26/19 18:11 Discharge - Discharge Clinical Impression: Acute URI Condition: Stable Disposition: HOME, SELF-CARE Instructions: Upper Respiratory Illness ([facility]) Additional Instructions: Maintain adequate fluid intake tylenol/ibuprofen as needed alternating every 3 hours for fever/body ache over the counter cold medication as needed for symptoms Humidified air may help Wash your hands regularly Wear a mask when coughing F/u: with your PCM in 2-3 days for a recheck Return to the ED with any fever, altered mental status/behavior, chest pain, palpitations, syncope, headache, neck pain/stiffness, shortness of breath, chest pains, wheezing, drooling, trouble swallowing/breathing, abdominal pain, n/v/d, rash, or worsening/concerning symptoms otherwise. Prescriptions: Oseltamivir Phosphate [Tamiflu 75 mg Capsule] 75 mg PO BID #10 capsule Referrals: [facility] [Provider Group] - Follow up as needed
[2019-08-26 19:49] LABS: A TYPE INFLUENZA AG NEGATIVE (NEGATIVE); B INFLUENZA AG NEGATIVE (NEGATIVE)
[2019-08-26 20:02] VITALS: BP 123/67
== END 2019-08-26 20:35 | disposition home or self-care (01) ==
LOC: ER 17:36
DX: O99.519 Diseases of the respiratory system complicating pregnancy, unspecified trimester (principal); J06.9 Acute upper respiratory infection, unspecified; O26.899 Other specified pregnancy related conditions, unspecified trimester; R09.81 Nasal congestion; R05 Cough; R50.9 Fever, unspecified; R52 Pain, unspecified; Z3A.00 Weeks of gestation of pregnancy not specified
CPT/HCPCS: 87804; 99283

== ENCOUNTER 2020-06-02 08:46 | Emergency (ER) | payer OTHER ==
--- NOTE | 2020-06-02 09:18 | ER Document Report ---
ED Medical Screen (RME) - General Chief Complaint: Abdominal Pain Stated Complaint: ABDOMINAL PAIN Time Seen by Provider: 06/02/20 09:16 Notes: HPI: 29-year-old female presenting for evaluation of right upper quadrant pain fairly constant over the last 5 days. History of prior gallbladder issues where she had been diagnosed with gallbladder sludge no stones. Has had nausea no fever no diarrhea no vomiting. Reports continued discomfort in the right upper quadrant region. No shortness of breath or chest pain PHYSICAL EXAMINATION: Minimal tenderness in the right upper quadrant on palpation limited exam by triage process. Patient with prior history of partial hysterectomy. I have greeted and performed a rapid initial assessment of this patient. A comprehensive ED assessment and evaluation of the patient, analysis of test results and completion of medical decision making process will be conducted by an additional ED providers. TRAVEL OUTSIDE OF THE [place] IN LAST 30 DAYS: No - Related Data Allergies/Adverse Reactions: acetaminophen [From Percocet] Allergy (Intermediate, Verified 06/02/20 09:09) oxycodone [From Percocet] Allergy (Intermediate, Verified 06/02/20 09:09) Past Medical History - Social History Chew tobacco use (# tins/day): No Frequency of alcohol use: None Drug Abuse: None - Past Medical History Cardiac Medical History: Denies: Hx Coronary Artery Disease, Hx Heart Attack, Hx Hypertension Pulmonary Medical History: Denies: Hx Asthma, Hx Bronchitis, Hx COPD, Hx Pneumonia Neurological Medical History: Denies: Hx Cerebrovascular Accident, Hx Seizures Renal/ Medical History: Denies: Hx Peritoneal Dialysis Musculoskeltal Medical History: Denies Hx Arthritis Psychiatric Medical History: Reports: Hx Depression - as teenager Denies: Hx Bipolar Disorder, Hx Post Traumatic Stress Disorder, Hx Schizophrenia Past Surgical History: Reports: Hx Section, Hx Gynecologic Surgery - D/C - Immunizations Immunizations up to date: Yes Hx Diphtheria, Pertussis, Tetanus Vaccination: Yes Physical Exam - Vital signs Vitals: Temp Pulse Resp BP Pulse Ox 98.1 F 87 16 117/71 100 06/02/20 08:50 06/02/20 08:50 06/02/20 08:50 06/02/20 08:50 06/02/20 08:50 Course - Vital Signs Vital signs: Temp Pulse Resp BP Pulse Ox 98.1 F 87 16 117/71 100 06/02/20 09:09 06/02/20 08:50 06/02/20 08:50 06/02/20 08:50 06/02/20 08:50
[2020-06-02 09:47] LABS: ABSOLUTE LYMPHOCYTES (AUTO) 1.9 10^3/uL (0.5-4.7); ABSOLUTE MONOCYTES (AUTO) 0.2 10^3/uL (0.1-1.4); ABSOLUTE NEUT (AUTO) 2.9 10^3/uL (1.7-8.2); BASOPHILS % (AUTO) 0.6 % (0-2); EOSINOPHILS % (AUTO) 0.5 % (0-6); HEMATOCRIT 41.2 % (36.0-47.0); HEMOGLOBIN 13.9 g/dL (12.0-15.5); LYMPHOCYTES % (AUTO) 37.9 % (13-45); MEAN CORPUSCULAR HEMOGLOBIN 29.7 pg (27.0-33.4); MEAN CORPUSCULAR HGB CONC 33.8 g/dL (32.0-36.0); MEAN CORPUSCULAR VOLUME 88 fl (80-97); MONOCYTES % (AUTO) 4.6 % (3-13); PLATELET COUNT 200 10^3/uL (150-450); RED BLOOD COUNT 4.69 10^6/uL (3.72-5.28); RED CELL DISTRIBUTION WIDTH 14.6 % (11.5-14.0); SEGMENTED NEUTROPHILS % (AUTO) 56.4 % (42-78); TOTAL CELLS COUNTED % (AUTO) 100 %; WHITE BLOOD COUNT 5.1 10^3/uL (4.0-10.5)
[2020-06-02 10:06] LABS: ALBUMIN 4.2 g/dL (3.5-5.0); ALKALINE PHOSPHATASE 55 U/L (38-126); ANION GAP 6 (5-19); ASPARTATE AMINO TRANSFERASE 17 U/L (14-36); BILIRUBIN,DIRECT 0.1 mg/dL (0.0-0.4); BILIRUBIN,TOTAL 0.3 mg/dL (0.2-1.3); BLOOD UREA NITROGEN 12 mg/dL (7-20); CALCIUM 9.3 mg/dL (8.4-10.2); CARBON DIOXIDE 27 mmol/L (22-30); CHLORIDE 108 mmol/L (98-107); GLUCOSE 98 mg/dL (75-110); POTASSIUM 4.5 mmol/L (3.6-5.0); TOTAL PROTEIN 6.8 g/dL (6.3-8.2)
[2020-06-02 10:15] LABS: APPEARANCE,URINE SLIGHTLY-CLOUDY; BILIRUBIN,URINE NEGATIVE (NEGATIVE); COLOR,URINE YELLOW; GLUCOSE, URINE NEGATIVE (NEGATIVE); KETONES,URINE NEGATIVE (NEGATIVE); LEUKOCYTE ESTERASE,URINE NEGATIVE (NEGATIVE); NITRITE,URINE NEGATIVE (NEGATIVE); PROTEIN,URINE NEGATIVE (NEGATIVE); UROBILINOGEN,URINE NEGATIVE mg/dL (<2.0)
--- NOTE | 2020-06-02 10:27 | RADIOLOGY REPORT (SQ) ---
EXAM DESCRIPTION: U/S ABDOMEN LIMITED W/O DOP IMAGES COMPLETED DATE/TIME: 06/02/2020 10:12 am REASON FOR STUDY: ruq pain COMPARISON: 05/08/2012. TECHNIQUE: Dynamic and static grayscale images acquired of the abdomen and recorded on PACS. Additio jani selected color Doppler and spectral images recorded. LIMITATIONS: None. FINDINGS: PANCREAS: No masses. Visualized pancreatic duct normal caliber. LIVER: No masses. Echotexture normal. LIVER VASCULATURE: Normal directional flow of the main portal vein and hepatic veins. GALLBLADDER: No stones. Faint sludge in the gallbladder neck. Normal wall thickness. No pericholecy stic fluid. ULTRASOUND-DETECTED NINA'S SIGN: Negative. INTRAHEPATIC DUCTS AND COMMON DUCT: CBD and intrahepatic ducts normal caliber. No filling defects. INFERIOR VENA CAVA: Normal flow. AORTA: No aneurysm. RIGHT KIDNEY: Normal size. Normal echogenicity. No solid or suspicious masses. No hydronephrosis. No calcifications. PERITONEAL AND RIGHT PLEURAL SPACE: No ascites or effusions. OTHER: No other significant findings. IMPRESSION: GALLBLADDER SLUDGE. TECHNICAL DOCUMENTATION: JOB ID: [id number] [email or web address]- All Rights Reserved Reading location - IP/workstation name: [email or web address]
--- NOTE | 2020-06-02 10:53 | ER Document Report ---
ED GI/ - General Chief Complaint: Abdominal Pain Stated Complaint: ABDOMINAL PAIN Time Seen by Provider: 06/02/20 09:16 Notes: CHIEF COMPLAINT: Right upper quadrant pain HPI:29-year-old female presenting for evaluation of right upper quadrant pain fairly constant over the last 5 days. History of prior gallbladder issues where she had been diagnosed with gallbladder sludge no stones. Has had nausea no fever no diarrhea no vomiting. Reports continued discomfort in the right upper quadrant region. No shortness of breath or chest pain ROS: See HPI - all other systems were reviewed and are otherwise negative Constitutional: no fever Eyes: no drainage, no blurred vision ENT: no runny nose, no sore throat Cardiovascular: no chest pain Resp: no SOB, no cough GI: no vomiting, no diarrhea, + abdominal pain : no dysuria Integumentary: no rash Allergy: no hives Musculoskeletal: no extremity pain or swelling Neurological: no numbness/tingling, no weakness MEDICATIONS: I agree with the patient medications as charted by the RN. ALLERGIES: I agree with the allergies as charted by the RN. PAST MEDICAL HISTORY/PAST SURGICAL HISTORY: Reviewed and agree as charted by RN. SOCIAL HISTORY: Reviewed and agree as charted by RN. FAMILY HISTORY: No significant familial comorbid conditions directly related to patient complaint EXAM: Reviewed vital signs as charted by RN. CONSTITUTIONAL: Alert and oriented and responds appropriately to questions. Well-appearing; well-nourished HEAD: Normocephalic; atraumatic EYES: PERRL; Conjunctivae clear, sclerae non-icteric ENT: normal nose; no rhinorrhea; moist mucous membranes; pharynx without lesions noted, no uvula edema or deviation, no tonsillar hypertrophy, phonation normal NECK: Supple without meningismus; non-tender; no cervical lymphadenopathy, no masses CARD: RRR; no murmurs, no clicks, no rubs, no gallops; symmetric distal pulses RESP: Normal chest excursion without splinting or tachypnea; breath sounds clear and equal bilaterally; no wheezes, no rhonchi, no rales, pulse oximetry 100% on room air not hypoxic ABD/GI: Normal bowel sounds; non-distended; soft, minimal tenderness in the right upper quadrant on palpation, no rebound, no guarding; no palpable organomegaly or masses. BACK: The back appears normal and is non-tender to palpation, there is no CVA tenderness EXT: Normal ROM in all joints; non-tender to palpation; no cyanosis, no effusions, no edema SKIN: Normal color for age and race; warm; dry; good turgor; no acute lesions noted NEURO: Moves all extremities equally; Motor and sensory function intact PSYCH: The patient's mood and manner are appropriate. Grooming and personal hygiene are appropriate. MDM: 33-year-old female prior history of gallbladder sludge several years ago presenting for right upper quadrant pain over the last 5 days. Has not had vomiting or fever. Work-up today shows normal lab work, gallbladder sludge but no evidence of cholelithiasis or cholecystitis. Patient is very comfortable at this time. I spoke with her at length about her results will refer to surgery for outpatient management, strict return precautions were discussed TRAVEL OUTSIDE OF THE [place] IN LAST 30 DAYS: No - Related Data Allergies/Adverse Reactions: acetaminophen [From Percocet] Allergy (Intermediate, Verified 06/02/20 09:09) oxycodone [From Percocet] Allergy (Intermediate, Verified 06/02/20 09:09) Past Medical History - Social History Smoking Status: Current Every Day Smoker Chew tobacco use (# tins/day): No Frequency of alcohol use: None Drug Abuse: None Family History: Reviewed & Not Pertinent Patient has homicidal ideation: No - Past Medical History Cardiac Medical History: Denies: Hx Coronary Artery Disease, Hx Heart Attack, Hx Hypertension Pulmonary Medical History: Denies: Hx Asthma, Hx Bronchitis, Hx COPD, Hx Pneumonia Neurological Medical History: Denies: Hx Cerebrovascular Accident, Hx Seizures Renal/ Medical History: Denies: Hx Peritoneal Dialysis Musculoskeletal Medical History: Denies Hx Arthritis Psychiatric Medical History: Reports: Hx Depression - as teenager Denies: Hx Bipolar Disorder, Hx Post Traumatic Stress Disorder, Hx Schizophrenia Past Surgical History: Reports: Hx Section, Hx Gynecologic Surgery - D/C - Immunizations Immunizations up to date: Yes Hx Diphtheria, Pertussis, Tetanus Vaccination: Yes Physical Exam - Vital signs Vitals: Temp Pulse Resp BP Pulse Ox 98.1 F 87 16 117/71 100 06/02/20 08:50 06/02/20 08:50 06/02/20 08:50 06/02/20 08:50 06/02/20 08:50 Course - Vital Signs Vital signs: Temp Pulse Resp BP Pulse Ox 98.1 F 87 16 117/71 100 06/02/20 09:09 06/02/20 08:50 06/02/20 08:50 06/02/20 08:50 06/02/20 08:50 - Laboratory Result Diagrams: 06/02/20 09:30 06/02/20 09:30 Laboratory results interpreted by me: 06/02/20 06/02/20 09:30 09:30 RDW 14.6 H Chloride 108 H Discharge - Discharge Clinical Impression: Right upper quadrant pain, Gallbladder sludge Condition: Stable Disposition: HOME, SELF-CARE Additional Instructions: Saline diet. Your work-up today showed normal labs and some sludge in the gallbladder but no definite stones. Follow-up closely with the surgery clinic for outpatient management and evaluation if you develop fever vomiting or worsening abdominal pain return for reevaluation as discussed Referrals: BIPIN PETERS MD [ACTIVE STAFF] - Follow up as needed
[2020-06-02 11:18] VITALS: BP 116/65
--- OUTSIDE RECORDS SUMMARY | 2020-06-03 18:31 | XMS REPORT ---
:1990 Author [facility] Address [address] [address] Care Team Providers Name Role Phone Unavailable Unavailable Unavailable Allergies, Adverse Reactions, Alerts This patient has no known allergies or adverse reactions. Medications This patient has no known medications. Problems This patient has no known problems. Procedures This patient has no known procedures. Results This patient has no known results. Social History This patient has no known social history. Vital Signs This patient has no known vital signs.
== END 2020-06-02 11:23 | disposition home or self-care (01) ==
LOC: ER 08:46
DX: K82.8 Other specified diseases of gallbladder (principal); R10.11 Right upper quadrant pain; R10.811 Right upper quadrant abdominal tenderness; R11.0 Nausea; F17.200 Nicotine dependence, unspecified, uncomplicated; Z88.8 Allergy status to other drugs, medicaments and biological substances; Z88.6 Allergy status to analgesic agent; Z88.5 Allergy status to narcotic agent
CPT/HCPCS: 36415; 76705; 80053; 81001; 83690; 85025; 99284

== ENCOUNTER → 2020-06-16 | Outpatient (CLI) | payer OTHER ==
--- NOTE | 2020-06-16 12:20 | RADIOLOGY REPORT (SQ) ---
EXAM DESCRIPTION: NM HIDA SCAN WITH CCK IMAGES COMPLETED DATE/TIME: 06/16/2020 10:30 am REASON FOR STUDY: R10.11 RIGHT UPPER QUADRANT PAIN R10.11 RIGHT UPPER QUADRANT PAIN COMPARISON: 06/02/2020 ultrasound RADIONUCLIDE AND DOSE: DOSAGE RADIONUCLIDE: 5.32 millicuries Tc99m Mebrofenin. DOSAGE CCK: 1.0 micrograms. DOSAGE MORPHINE: Not required. The route of agent administration: Intravenous TECHNIQUE: Serial imaging right upper quadrant up to 60 minutes following injection of radionuclide. CCK injected after gallbladder visualized. LIMITATIONS: None. FINDINGS: LIVER: Normal visualization without areas of photopenia. INTRAHEPATIC BILE DUCTS: Normal size and no delay in visualization. COMMON BILE DUCT: Normal without dilatation. GALLBLADDER: Normal visualization. Calculated ejection fraction of 61%. Normal range is greater th an 35%. PHYSICAL RESPONSE: Patients presenting complaint was not reproduced. OTHER: No other significant finding. IMPRESSION: NORMAL STUDY WITHOUT CYSTIC OR COMMON DUCT OBSTRUCTION. NORMAL GALLBLADDER EJECTION FRACTION (61%). NO EVIDENCE FOR BILIARY DYSKINESIS. TECHNICAL DOCUMENTATION: JOB ID: [id number] [employer]- All Rights Reserved Reading location - IP/workstation name: [email or web address]
== END ==
LOC: RAD 07:22
PROVIDERS: ATTEND Internal Medicine Geriatric Medicine
DX: R10.11 Right upper quadrant pain (principal)
CPT/HCPCS: 78227; J2805; A9537; Q9969

== ENCOUNTER 2020-08-07 14:43 | Emergency (ER) | payer OTHER ==
[2020-08-07 14:49] VITALS: BP 107/79
--- NOTE | 2020-08-07 15:13 | ER Document Report ---
ED GI/ - General Chief Complaint: Abdominal Problem Stated Complaint: BLEEDING FROM [place] Time Seen by Provider: 08/07/20 15:01 Primary Care Provider: JAMMIE LOPEZ MD [Primary Care Provider] - Follow up as needed Mode of Arrival: Ambulatory Information source: Patient TRAVEL OUTSIDE OF THE [place] IN LAST 30 DAYS: No - HPI Patient complains to provider of: Other - Bleeding from umbilicus Notes: 08/07/20 15:14 Patient here with complaints of bleeding from her umbilicus for the last 6 weeks. She states that this has been intermittent for the last 6 weeks. Is not a lot of blood. Today she noticed some foul odor coming from her umbilicus as well. She denies any injury to the area. No piercings. She denies scratching the area. She does complain of some occasional vomiting. She denies any abdominal pain otherwise. She reports that it takes her a long time to have a bowel movement but her stool is soft. She actually has an appointment with GI coming up early next week regarding all of this. She denies any fevers. No chest pain or shortness of breath. No rash. Nothing seems to make symptoms better or worse. No dysuria or hematuria. No other complaints at this time. - Related Data Allergies/Adverse Reactions: acetaminophen [From Percocet] Allergy (Intermediate, Verified 08/07/20 14:57) oxycodone [From Percocet] Allergy (Intermediate, Verified 08/07/20 14:57) Past Medical History - Social History Smoking Status: Current Every Day Smoker Frequency of alcohol use: None Drug Abuse: Marijuana Family History: Reviewed & Not Pertinent - Past Medical History Cardiac Medical History: Denies: Hx Coronary Artery Disease, Hx Heart Attack, Hx Hypertension Pulmonary Medical History: Denies: Hx Asthma, Hx Bronchitis, Hx COPD, Hx Pneumonia Neurological Medical History: Denies: Hx Cerebrovascular Accident, Hx Seizures Renal/ Medical History: Denies: Hx Peritoneal Dialysis Musculoskeletal Medical History: Denies Hx Arthritis Psychiatric Medical History: Reports: Hx Depression Denies: Hx Bipolar Disorder, Hx Post Traumatic Stress Disorder, Hx Schizophrenia Past Surgical History: Reports: Hx Section, Hx Gynecologic Surgery - Immunizations Immunizations up to date: Yes Hx Diphtheria, Pertussis, Tetanus Vaccination: Yes Review of Systems - Review of Systems -: Yes All other systems reviewed and negative Physical Exam - Vital signs Vitals: Temp Pulse Resp BP Pulse Ox 99.1 F 102 H 18 107/79 98 08/07/20 14:47 08/07/20 14:47 08/07/20 14:47 08/07/20 14:47 08/07/20 14:47 - Notes Notes: GENERAL: alert, cooperative, nontoxic, no distress. HEAD: normocephalic, atraumatic EYES: conjunctiva pink without discharge, no external redness or swelling. EARS: no external swelling, no external redness NOSE: atraumatic, no external swelling MOUTH/THROAT: mucous membranes moist and pink, posterior pharynx without erythe ma, swelling, exudate. No trismus or drooling. NECK: soft, supple, full range of motion, no meningismus. CHEST: no distress, lungs clear and equal throughout. No wheezing, rales, rhonchi. CARDIAC: regular rate and rhythm, no murmur ABDOMEN: Soft, nontender to palpation. Normal bowel sounds. Small amount of dried blood and old blood noted within the umbilicus. Mild tenderness to palpation. No purulent drainage. No significant surrounding erythema. BACK: full range of motion EXTREMITIES: full range of motion of all extremities. No redness, no swelling. NEURO: alert and oriented x 3, no focal deficits, full range of motion of all extremities. PYSCH: appropriate mood, affect. Patient is cooperative. SKIN: pink, warm, dry, no rash. Course - Re-evaluation Re-evalutation: 08/07/20 15:16 Patient is nontoxic-appearing stable vitals. Here with complaints of bleeding from her umbilicus. She states that this has been going on for the last 6 weeks intermittently. She has had a few episodes of nausea vomiting. She denies any severe abdominal pain at this time. On exam she is noted to have some dried blood mild tenderness to her umbilicus with no significant surrounding cellulitis. Do not see any purulent drainage at this time. She has no abdominal tenderness otherwise. She is noted to have minimal tachycardia with a heart rate of 102. Overall the patient looks extremely well. I did offer doing blood work and a CAT scan, the patient declined at this time. Do believe that this is reasonable at this point the most likely cause of this patient's bleeding is from a superficial skin infection. Patient will be discharged home with a prescription for antibiotics and instructions to follow-up with her GI d octor as scheduled early next week for further evaluation of her other GI complaints. If symptoms of bleeding do not improve after antibiotics, I would recommend that the patient follow-up with her primary care doctor did also instruct her to inform her GI doctor regarding her bleeding. Follow-up sooner she has any worsening pain, high fever, spreading redness, persistent vomiting, or any further concerns. The patient's emergency department workup and current diagnosis were explained to the patient and or family. Follow-up instructions were provided. Medications if prescribed were discussed. Instructions for when to return to the emergency department including specific worrisome symptoms were discussed with the patient and/or family. - Vital Signs Vital signs: Temp Pulse Resp BP Pulse Ox 99.1 F 102 H 18 107/79 98 08/07/20 14:47 08/07/20 14:47 08/07/20 14:47 08/07/20 14:47 08/07/20 14:47 - Laboratory Results Critical Laboratory Results Reviewed: No Critical Results - Radiology Results Critical Radiology Results Reviewed: No Critical Results Discharge - Discharge Clinical Impression: Umbilicus discharge Condition: Stable Disposition: HOME, SELF-CARE Instructions: Cellulitis ([facility]) Additional Instructions: Take medication as prescribed. Keep area clean and dry. You can apply a thin layer of antibiotic ointment. Follow-up with GI as scheduled. Follow-up sooner for worsening pain, high fever, persistent vomiting, redness, severe pain, or any further concerns. Prescriptions: Sulfamethoxazole/Trimethoprim [Bactrim Ds Tablet] 1 each PO BID #20 tablet Referrals: JAMMIE LOPEZ MD [Primary Care Provider] - Follow up as needed
== END 2020-08-07 15:11 | disposition home or self-care (01) ==
LOC: ER 14:43
DX: R19.8 Other specified symptoms and signs involving the digestive system and abdomen (principal); R11.10 Vomiting, unspecified; F17.200 Nicotine dependence, unspecified, uncomplicated; Z88.6 Allergy status to analgesic agent
CPT/HCPCS: 99283